=== PATIENT | female | born 1965 | race Caucasian/White ===

== ENCOUNTER 2016-05-04 06:20 | Emergency (ER) | payer BC ==
[~2016-05-04 06:20] MED LIST: LORCET PLUS 7.1 EACH PO; ONCE DAILY1 EACH PO; PAIN RELIEF650 MG PO; PERCOCET 10-321 EACH PO; VIBRAMYCIN100 MG PO
[2016-05-04 08:19] LABS: RED BLOOD COUNT 4.01 M/UL (4.00-5.10); WHITE BLOOD COUNT 2.9 K/UL (4.5-11.0)
[2016-05-04 08:35] LABS: BUN/CREATININE RATIO 28 (0-10)
[2016-09-30] MEDS ORDERED: HYDROCHLOROTHIA25 MG PO (07:17)
[2016-09-30] MEDS ORDERED: ISOSORBIDE DINI30 MG PO (07:18)
[2016-09-30] MEDS ORDERED: LORTAB 5-325 M1 EACH PO (07:18)
[2016-09-30] MEDS ORDERED: METOPROLOL TART25 MG PO (07:19)
[2016-09-30] MEDS ORDERED: TIZANIDINE HCL4 MG PO (07:19)
[2016-09-30] MEDS ORDERED: ASPIRIN81 MG PO (07:20)
== END 2016-05-04 10:49 | disposition home or self-care (01) ==
LOC: ER1 06:20
PROVIDERS: Physician Assistant
DX: J10.1 Influenza due to other identified influenza virus with other respiratory manifestations (principal); I10 Essential (primary) hypertension; M19.90 Unspecified osteoarthritis, unspecified site; Z88.8 Allergy status to other drugs, medicaments and biological substances; Z79.899 Other long term (current) drug therapy
CPT/HCPCS: 36415; 71020; 80053; 81001; 82550; 82553; 83690; 83874; 84484; 85025; 85379; 87040; 93005; 96361; 96374; 99285; J2405

== ENCOUNTER 2016-05-07 19:45 | Emergency (ER) | payer BC ==
[2016-05-08 03:33] LABS: HEMOGLOBIN 13.4 gm/dl (12.3-15.3); RED BLOOD COUNT 4.5 M/UL (4.00-5.10); WHITE BLOOD COUNT 4.4 K/UL (4.5-11.0)
[2016-05-08 03:55] LABS: BUN/CREATININE RATIO 13 (0-10)
[2016-09-30] MEDS ORDERED: HYDROCHLOROTHIA25 MG PO (07:17)
[2016-09-30] MEDS ORDERED: ISOSORBIDE DINI30 MG PO (07:18)
[2016-09-30] MEDS ORDERED: LORTAB 5-325 M1 EACH PO (07:18)
[2016-09-30] MEDS ORDERED: TIZANIDINE HCL4 MG PO (07:19)
[2016-09-30] MEDS ORDERED: METOPROLOL TART25 MG PO (07:19)
[2016-09-30] MEDS ORDERED: ASPIRIN81 MG PO (07:20)
== END 2016-05-08 06:00 | disposition home or self-care (01) ==
LOC: ER1 19:45
PROVIDERS: Physician Assistant
DX: J11.1 Influenza due to unidentified influenza virus with other respiratory manifestations (principal); N39.0 Urinary tract infection, site not specified; R03.0 Elevated blood-pressure reading, without diagnosis of hypertension; Z88.8 Allergy status to other drugs, medicaments and biological substances; Z90.49 Acquired absence of other specified parts of digestive tract
CPT/HCPCS: 36415; 70450; 71020; 80053; 81001; 82550; 82553; 83735; 83874; 84439; 84443; 84484; 85025; 86140; 87077; 87086; 87186; 93005; 96360; 99284; J7040

== ENCOUNTER 2016-07-25 21:37 | Emergency (ER) | payer BC ==
[2016-07-25 23:13] LABS: HEMOGLOBIN 12.4 gm/dl (12.3-15.3); RED BLOOD COUNT 4.21 M/UL (4.00-5.10); WHITE BLOOD COUNT 6.3 K/UL (4.5-11.0)
[2016-07-25 23:36] LABS: BUN/CREATININE RATIO 29 (0-10)
[2016-09-30] MEDS ORDERED: HYDROCHLOROTHIA25 MG PO (07:17)
[2016-09-30] MEDS ORDERED: LORTAB 5-325 M1 EACH PO (07:18)
[2016-09-30] MEDS ORDERED: ISOSORBIDE DINI30 MG PO (07:18)
[2016-09-30] MEDS ORDERED: TIZANIDINE HCL4 MG PO (07:19)
[2016-09-30] MEDS ORDERED: METOPROLOL TART25 MG PO (07:19)
[2016-09-30] MEDS ORDERED: ASPIRIN81 MG PO (07:20)
== END 2016-07-26 01:20 | disposition home or self-care (01) ==
LOC: ER1 21:37
PROVIDERS: Family Medicine
DX: R00.2 Palpitations (principal); I10 Essential (primary) hypertension; Z88.8 Allergy status to other drugs, medicaments and biological substances; Z98.84 Bariatric surgery status; R42 Dizziness and giddiness
CPT/HCPCS: 36415; 80053; 80307; 81001; 82550; 82553; 83874; 84484; 85025; 93005; 99284

== ENCOUNTER → 2016-07-26 | Outpatient (CLI) | payer BC ==
[~2016-07-26] MED LIST changes: +ASPIRIN81 MG PO; +HYDROCHLOROTHIA25 MG PO; +ISOSORBIDE DINI30 MG PO; +LORTAB 5-325 M1 EACH PO; +METOPROLOL TART25 MG PO; +TIZANIDINE HCL4 MG PO
== END ==
LOC: HEART 5 09:44
DX: R00.2 Palpitations (principal)

== ENCOUNTER 2016-08-16 22:41 | Emergency (ER) | payer BC ==
[~2016-08-16 22:41] MED LIST changes: -ASPIRIN81 MG PO; -HYDROCHLOROTHIA25 MG PO; -ISOSORBIDE DINI30 MG PO; -LORTAB 5-325 M1 EACH PO; -METOPROLOL TART25 MG PO; -TIZANIDINE HCL4 MG PO
[2016-09-30] MEDS ORDERED: HYDROCHLOROTHIA25 MG PO (07:17)
[2016-09-30] MEDS ORDERED: LORTAB 5-325 M1 EACH PO (07:18)
[2016-09-30] MEDS ORDERED: ISOSORBIDE DINI30 MG PO (07:18)
[2016-09-30] MEDS ORDERED: METOPROLOL TART25 MG PO (07:19)
[2016-09-30] MEDS ORDERED: TIZANIDINE HCL4 MG PO (07:19)
[2016-09-30] MEDS ORDERED: ASPIRIN81 MG PO (07:20)
== END 2016-08-17 00:12 | disposition left against medical advice (07) ==
LOC: ER1 22:41
DX: Z53.21 Procedure and treatment not carried out due to patient leaving prior to being seen by health care provider (principal)
CPT/HCPCS: 93005

== ENCOUNTER → 2016-08-17 | Outpatient (CLI) | payer BC ==
[~2016-08-17] MED LIST changes: +ASPIRIN81 MG PO; +HYDROCHLOROTHIA25 MG PO; +ISOSORBIDE DINI30 MG PO; +LORTAB 5-325 M1 EACH PO; +METOPROLOL TART25 MG PO; +TIZANIDINE HCL4 MG PO
== END ==
LOC: HEART 5 13:08
DX: I20.9 Angina pectoris, unspecified (principal); R00.0 Tachycardia, unspecified; R00.2 Palpitations

== ENCOUNTER → 2016-08-18 | Outpatient (CLI) | payer BC ==
[2016-08-18 07:58] LABS: BUN/CREATININE RATIO 23 (0-10)
== END ==
LOC: LAB 07:05
PROVIDERS: Internal Medicine Cardiovascular Disease
DX: I20.9 Angina pectoris, unspecified (principal); I10 Essential (primary) hypertension
CPT/HCPCS: 36415; 80048; 80061; 80076; 83735; 84439; 84443; 84481

== ENCOUNTER → 2020-10-19 | Outpatient (CLI) | payer OTHER ==
[~2020-10-19] MED LIST changes: +AMOXICILLIN500 MG PO; +FLAGYL500 MG PO; +IBUPROFEN800 MG PO; +KEFLEX CAP 500500 MG PO; +NORCO 10-325 T1 EACH PO; +ZITHROMAX1 GM PO
== END ==
LOC: EXRD 11:33
DX: M79.672 Pain in left foot (principal); G89.29 Other chronic pain; M79.89 Other specified soft tissue disorders
CPT/HCPCS: 73630

== ENCOUNTER → 2021-02-03 | Outpatient (CLI) | payer OTHER | LOC: HEART 5 09:06 | DX: I20.9 Angina pectoris, unspecified (principal); R06.02 Shortness of breath; R00.2 Palpitations; I47.2 Ventricular tachycardia; I08.1 Rheumatic disorders of both mitral and tricuspid valves | CPT/HCPCS: 93306 ==

== ENCOUNTER → 2021-04-26 | Outpatient (CLI) | payer OTHER | LOC: HEART 5 04-15 08:45 | DX: I20.9 Angina pectoris, unspecified (principal) | CPT/HCPCS: 78452; A9502; J2785 ==

== ENCOUNTER → 2021-04-27 | Outpatient (CLI) | payer OTHER | LOC: HEART 5 08:57 | DX: R06.02 Shortness of breath (principal) | CPT/HCPCS: 94010 ==

== ENCOUNTER → 2021-12-01 | Outpatient (CLI) | payer OTHER | LOC: HEART 5 08:20 | DX: R07.9 Chest pain, unspecified (principal); R06.02 Shortness of breath; I27.20 Pulmonary hypertension, unspecified; I07.1 Rheumatic tricuspid insufficiency | CPT/HCPCS: 93306 ==